=== PATIENT | male | born 1990 | race African-American/Black ===

== ENCOUNTER 2017-07-26 10:19 | Emergency (ER) | payer OTHER ==
[~2017-07-26] VITALS: Ht 165.1 cm; Wt 54.4 kg
[2017-07-26] MEDS ORDERED: CEFTRIAXONE 500 MG VIAL ONE (11:13)
[2017-07-26] MEDS ORDERED: LIDOCAINE /MPF 1% VIAL 5 ML VIAL ONE (11:13)
[2017-07-26] MEDS ORDERED: AZITHROMYCIN 250 MG TABLET ONE (11:14)
[2017-07-26] MEDS ORDERED: CEFTRIAXONE 500 MG VIAL IM ONE (11:30)
[2017-07-26] MEDS ORDERED: AZITHROMYCIN 250 MG TABLET PO ONE (11:30)
[2017-07-26 11:46] LABS: BILIRUBIN,URINE Negative (NEGATIVE); BLOOD, URINE Negative Ery/uL (NEGATIVE); KETONES,URINE Trace (NEGATIVE); LEUKOCYTE ESTERASE ,URINE Negative (NEGATIVE); NITRITE, URINE Negative (NEGATIVE); PH,URINE 5.5 (5.0-8.0); PROTEIN,URINE Negative (NEGATIVE); UGLUCOSE Negative (NEGATIVE); UROBILINOGEN,URINE 0.2 EU/dL (0.2)
[2017-07-26 11:49] LABS: APPEARANCE,URINE Hazy (CLEAR); COLOR,URINE Dark Yellow (YELLOW)
[2017-07-26 11:54] LABS: BACTERIA,URINE None seen /HPF (None Seen); RBC,URINE 0-3 /HPF (0-2); SQUAMOUS EPITHELIAL CELL,UR Few /HPF (None Seen)
[2017-07-26 12:09] VITALS: BP 102/68
--- NOTE | 2017-07-26 12:10 | NUR ---
Patient discharged to home in stable condition. Written and verbal after care instructions given. Patient verbalizes understanding of instruction.
== END 2017-07-26 12:11 | disposition home or self-care (01) ==
LOC: ER 10:21
DX: R36.9 Urethral discharge, unspecified (principal)
CPT/HCPCS: 81001; 87491; 87591; 96372; 99284; A4606; J0696; J3490; Z7610; 81000-TC